=== PATIENT | male | born 1935 | race Caucasian/White ===

== ENCOUNTER 2018-01-06 23:18 | Emergency (ER) | payer MEDICARE ==
[~2018-01-06] VITALS: Ht 170.2 cm; Wt 76.2 kg
[~2018-01-06 23:18] MED LIST: DM H PO; IBUP200C5 PO
--- NOTE | 2018-01-06 23:39 | NUR ---
Pt ambulates to ER with c/o left flank pain x 2 weeks and it is worse today. Pt denies any chest pain/SOB. Pt denies any GI/ distress. Pt is AAOX4. No acute distress noted.
[2018-01-06] MEDS ORDERED: HYDROMORPHONE 1 MG/1 ML DISP.SYRIN IV ONE (23:45)
[2018-01-06] MEDS ORDERED: ONDANSETRON IV *ER 4 MG/2 ML VIAL IV ONE (23:45)
[2018-01-06] MEDS ORDERED: IV NORMAL SALINE 500 ML BAG IV ONE (23:45)
[2018-01-06] MEDS ORDERED: SWABABLE VALVE TRANSFER SET EA MC ONE (23:46)
[2018-01-06] MEDS ORDERED: IOHEXOL 300MG/ML 100 ML INFUS..BTL ONE (23:47)
[2018-01-06] MEDS ORDERED: IV NORMAL SALINE 100 ML ONE (23:47)
[2018-01-07] LABS: BASOPHILS # (AUTO) 0.1 K/uL (0.0-8.0); BASOPHILS % (AUTO) 1.1 % (0.0-2.0); EOSINOPHILS # (AUTO) 0.1 K/uL (0.0-0.7); EOSINOPHILS % (AUTO) 1.1 % (0.0-7.0); HEMATOCRIT 42.2 % (36.7-47.1); HEMOGLOBIN 14.4 g/dL (12.5-16.3); LYMPHOCYTES # (AUTO) 2.4 K/uL (20.0-40.0); LYMPHOCYTES % (AUTO) 37.5 % (20.5-51.5); MEAN CORPUSCULAR HEMOGLOBIN 30.1 uug (23.8-33.4); MEAN CORPUSCULAR HGB CONC 34 g/dL (32.5-36.3); MEAN CORPUSCULAR VOLUME 88.1 fL (73.0-96.2); MONOCYTES # (AUTO) 0.5 K/uL (2.0-10.0); MONOCYTES % (AUTO) 7.4 % (0.0-11.0); NEUTROPHILS # (AUTO) 3.4 K/uL (1.8-8.9); NEUTROPHILS % (AUTO) 52.9 % (38.5-71.5); PLATELET COUNT (AUTO) 54 K/uL (152-348); RED BLOOD CELL COUNT(AUTO) 4.79 MIL/uL (4.06-5.63); WHITE BLOOD COUNT (AUTO) 6.4 K/uL (3.6-10.2)
[2018-01-07] MEDS ORDERED: ONDANSETRON 4 MG/2 ML VIAL ONE (00:01)
[2018-01-07] MEDS ORDERED: HYDROMORPHONE 2 MG/1 ML DISP.SYRIN ONE (00:01)
[2018-01-07 00:34] LABS: ALANINE AMINOTRANSFERASE 43 U/L (16-63); ALKALINE PHOSPHATASE 119 U/L (50-136); ASPARTATE AMINOTRANSFERASE 60 U/L (15-37); BILIRUBIN,DIRECT 0.4 mg/dL (0.0-0.2); BILIRUBIN,TOTAL 1.2 mg/dL (0.2-1.0); CARBON DIOXIDE 25 mmol/L (21-32); CHLORIDE 102 mmol/L (98-107); CREATININE 1.6 mg/dL (0.6-1.3); GLUCOSE 103 mg/dL (74-106); LIPASE 187 U/L (73-393); TOTAL PROTEIN, SERUM 7.1 g/dL (6.4-8.2); UREA NITROGEN, BLOOD 22 mg/dL (7-18)
--- NOTE | 2018-01-07 00:46 | NUR ---
Pt went down to radiology dept for CT scan. VSS.
--- NOTE | 2018-01-07 00:58 | NUR ---
Pt back from CT scan. VSS.
--- NOTE | 2018-01-07 01:50 | NUR ---
Called Dr. You ([facility], pt's primary care provider) and left message so Dr. Lew can speak to Dr. You regarding pt status.
--- NOTE | 2018-01-07 02:20 | NUR ---
Dr. Vipin SALGADO MD left phone message for Dr. Sanchez (environmental planner physician [facility]). Waiting call back.
--- NOTE | 2018-01-07 03:02 | NUR ---
Called Dr. Sanchez ([place] on-call physician) + left message. Waiting for call back.
--- NOTE | 2018-01-07 03:20 | NUR ---
Dr. Vipin SALGADO MD talking to Dr. Sanchez ([place]) who accepted the pt.
--- NOTE | 2018-01-07 03:25 | NUR ---
Called [facility] and faxed face sheet to [phone].
--- NOTE | 2018-01-07 03:38 | NUR ---
Received call back from [facility], Varsha, and was told pt has insurance through [employer]. Will call [employer].
--- NOTE | 2018-01-07 03:50 | NUR ---
IV removed. Catheter intact and site benign. Pressure and 4x4 gauze applied to site. No bleeding noted.
--- NOTE | 2018-01-07 03:56 | NUR ---
Patient does not wish to proceed with medical care recommended by Dr. Lew. Patient given information related to possible complications, up to and including , which could occur as a result of leaving the hospital at this time. Patient verbalizes understanding of risks involved due to leaving against medical advice. Patient has signed AMA form.
[2018-01-07 03:57] VITALS: BP 124/69
--- NOTE | 2018-01-07 03:57 | NUR ---
Patient discharged to home in stable conditon. Written and verbal after care instructions given. Patient verbalizes understanding of instructions. Pt ambulated out of ER in steady gait. Pt is AAOX4. All belongings with pt. VSS. NAD noted.
== END 2018-01-07 03:59 | disposition home or self-care (01) ==
LOC: ER 23:21
DX: R16.1 Splenomegaly, not elsewhere classified (principal); D69.6 Thrombocytopenia, unspecified; R59.1 Generalized enlarged lymph nodes; R19.02 Left upper quadrant abdominal swelling, mass and lump; Z79.1 Long term (current) use of non-steroidal anti-inflammatories (NSAID); Z79.899 Other long term (current) drug therapy
CPT/HCPCS: 36415; 83690; 85025; 85730; 93005; A4663; J1170; J2405; J3490; J7040; Q9967

== ENCOUNTER 2018-01-20 23:54 | Emergency (ER) | payer MEDICARE ==
[~2018-01-20] VITALS: Ht 170.2 cm; Wt 76.2 kg
[2018-01-21 01:16] LABS: CARBON DIOXIDE 22 mmol/L (21-32); CHLORIDE 99 mmol/L (98-107); CREATININE 1.6 mg/dL (0.6-1.3); GLUCOSE 92 mg/dL (74-106); POTASSIUM 3.7 mmol/L (3.5-5.1); UREA NITROGEN, BLOOD 19 mg/dL (7-18)
[2018-01-21 01:17] LABS: BASOPHILS # (AUTO) 0.1 K/uL (0.0-8.0); EOSINOPHILS # (AUTO) 0.2 K/uL (0.0-0.7); EOSINOPHILS % (AUTO) 1.4 % (0.0-7.0); MONOCYTES # (AUTO) 1.9 K/uL (2.0-10.0)
[2018-01-21 01:19] LABS: BASOPHILS % (AUTO) 1.2 % (0.0-2.0); HEMATOCRIT 43.1 % (36.7-47.1); HEMOGLOBIN 14.4 g/dL (12.5-16.3); LYMPHOCYTES # (AUTO) 4.2 K/uL (20.0-40.0); LYMPHOCYTES % (AUTO) 33.8 % (20.5-51.5); MEAN CORPUSCULAR HEMOGLOBIN 30.3 uug (23.8-33.4); MEAN CORPUSCULAR HGB CONC 34 g/dL (32.5-36.3); MEAN CORPUSCULAR VOLUME 90.5 fL (73.0-96.2); MONOCYTES % (AUTO) 14.9 % (0.0-11.0); NEUTROPHILS # (AUTO) 6.1 K/uL (1.8-8.9); NEUTROPHILS % (AUTO) 48.7 % (38.5-71.5); RED BLOOD CELL COUNT(AUTO) 4.76 MIL/uL (4.06-5.63)
[2018-01-21 01:27] LABS: PLATELET COUNT (AUTO) 21 K/uL (152-348)
[2018-01-21 01:28] LABS: WHITE BLOOD COUNT (AUTO) 12.6 K/uL (3.6-10.2)
--- NOTE | 2018-01-21 02:32 | NUR ---
Patient discharged to home in stable conditon. Written and verbal after care instructions given. Patient verbalizes understanding of instructions. Walked out of ER with steady gait. no distress noted
[2018-01-21 02:33] VITALS: BP 138/75
[2018-01-21 02:39] LABS: BAND % (MANUAL) 1 % (0-10); LYMPHOCYTES % (MANUAL) 21 % (20-40); MONOCYTES % (MANUAL) 13 % (2-10); NEUTROPHILS % (MANUAL) 65 % (42-75)
== END 2018-01-21 02:33 | disposition home or self-care (01) ==
LOC: ER 23:57
DX: R16.1 Splenomegaly, not elsewhere classified (principal); D69.6 Thrombocytopenia, unspecified; C85.90 Non-Hodgkin lymphoma, unspecified, unspecified site
CPT/HCPCS: 36415; 76700; 85025; A4663